=== PATIENT | male | born 1990 | race Caucasian/White ===

== ENCOUNTER 2024-03-17 17:55 | Outpatient (REF) | payer OTHER, SELFPAY ==
[2024-03-17 20:58] LABS: Bilirubin Negative (Negative); Blood Negative (Negative); Clarity Sl Cloudy (Clear); Glucose Negative (Negative); Ketones Negative (Negative); Leukocyte Esterase Negative (Negative); Nitrite Negative (Negative); Specific Gravity >= 1.030 (1.005-1.025); Urobilinogen 0.2 mg/dL (Up to 0.2)
== END 2024-03-17 17:56 | disposition home or self-care (01) ==
LOC: LBN 17:55
PROVIDERS: PCP Family Medicine; Visit Provider Family Medicine
DX: R30.0 Dysuria (principal)
CPT/HCPCS: 81003

== ENCOUNTER 2024-05-08 01:56 | Outpatient (CLI) | payer OTHER, SELFPAY ==
[2024-05-08 12:22] LABS: Abs Immature Grans 0.02 10^3/uL (0.0-0.06); Absolute Basophil Count 0.04 10^3/uL (0.0-0.2); Absolute Eosinophil Count 0.24 10^3/uL (0.0-0.7); Absolute Lymphocyte Count 2.24 10^3/uL (1.2-3.4); Absolute Monocyte Count 0.51 10^3/uL (0.1-0.8); Basophils % 0.6 %; Eosinophils % 3.6 %; HCT 45.6 % (40.0-50.0); HGB 15.8 g/dL (13.5-17.5); Immature Grans % 0.3 %; Lymphocytes % 33.2 %; MCH 28.3 pg (27.0-33.0); MCHC 34.6 % (32.0-36.0); MCV 82 fL (80-95); MPV 8.6 fL (8.0-11.0); Monocytes % 7.6 %; Neutrophils % 54.7 %; Platelet Count 321 10^3/uL (130-400); RBC 5.59 10^6/uL (4.36-5.78); RDW-SD 38.4 fL; WBC 6.75 10^3/uL (4.4-10.8)
[2024-05-08 13:45] LABS: Anion Gap 7.1 mmol/L (3-11); BUN 18 mg/dL (7-18); CO2 28.9 mmol/L (21.0-32.0); CREATININE 1.1 mg/dL (0.70-1.30); Calcium 9.2 mg/dL (8.5-10.1); Calculated LDL 108 mg/dL (<100); Chloride 106 mmol/L (98-107); Cholesterol 187 mg/dL (<200); Estimated GFR 91.47 (mL/min/1.73m2); Glucose 86 mg/dL (74-106); HDL Cholesterol 71 mg/dL (>or=40); Potassium 4.1 mmol/L (3.5-5.1); Sodium 142 mmol/L (136-145); TSH (W/Ref FT4) 4.19 uIU/mL (0.36-3.74); Triglyceride 43 mg/dL (<150)
[2024-05-08 22:03] LABS: T4, Free 1.3 ng/dL (0.8-2.2)
== END 2024-05-08 01:57 | disposition home or self-care (01) ==
PROVIDERS: PCP Family Medicine; Visit Provider Family Medicine
DX: I10 Essential (primary) hypertension (principal); Z13.6 Encounter for screening for cardiovascular disorders; R53.83 Other fatigue
CPT/HCPCS: 36415; 80048; 80061; 84439; 84443; 85025

== ENCOUNTER 2024-11-30 04:16 | Outpatient (CLI) | payer OTHER, SELFPAY ==
[2024-11-30 10:15] LABS: TSH (W/Ref FT4) 3.85 uIU/mL (0.36-3.74)
== END 2024-11-30 04:17 | disposition home or self-care (01) ==
LOC: LBO 04:16
PROVIDERS: PCP Family Medicine; Visit Provider Family Medicine
DX: E03.9 Hypothyroidism, unspecified (principal)
CPT/HCPCS: 36415; 84439; 84443